=== PATIENT | female | born 1990 | race Caucasian/White ===

== ENCOUNTER 2020-09-04 11:20 | Inpatient (IN) | payer OTHER, BC ==
[~2020-09-04 11:20] MED LIST: Dexamethasone 20 MG/5 ML VIAL ONE; Iopamidol-370 76% 500 ML 1 ML ONE; Ketorolac Tromethamine 30 MG/ML VIAL ONE; Lidocaine 1% PF 5 ML VIAL ONE; Ondansetron PF 4 MG/2 ML Vial ONE; PROPOFOL 200 MG/20 ML VIAL ONE; Rocuronium Bromide 10 MG/ML (10ML VIAL) ONE; Succinylcholine 200 MG/10 ml SYRINGE FS ONE; diphenhydrAMINE 50 MG/ML VIAL ONE
[2020-09-04 11:52] LABS: PTT 22.9 sec (22.9-36.1); Prothrombin Time 13.7 sec (12.0-14.7)
[2020-09-04 11:54] LABS: Hemoglobin 14.7 g/dL (12.0-16.0); Mean Corpuscular HGB CONC 34.7 g/dL (32.0-36.0); Mean Corpuscular Hemoglobin 30.3 pg (27.0-31.0); Mean Corpuscular Volume 87.3 fL (78.0-98.0); Platelet Count 272 thou/uL (130-400); RBC Distribution Width 12.7 % (11.5-14.5); Red Blood Cell (RBC) Count 4.84 mill/uL (4.20-5.40)
[2020-09-04 12:00] LABS: ALT (SGPT) 60 U/L (8-55); AST (SGOT) 34 U/L (5-34); Albumin 4.1 g/dL (3.5-5.0); Alkaline Phosphatase 146 U/L (40-110); Anion Gap 17 mmol/L (10-20); BUN (Urea Nitrogen) 13 mg/dL (7.0-18.7); Bilirubin, Total 0.5 mg/dL (0.2-1.2); Calc. Creatinine Clearance 0 mL/min (70-130); Calcium 8.8 mg/dL (7.8-10.44); Carbon Dioxide 17 mmol/L (22-29); Chloride 104 mmol/L (98-107); Globulin 2.8 g/dL (2.4-3.5); Glucose 174 mg/dL (70-105); Lipase 7 U/L (8-78); Potassium 4.1 mmol/L (3.5-5.1); Protein, Total 6.9 g/dL (6.0-8.3); Sodium 134 mmol/L (136-145)
[2020-09-04 12:01] LABS: Acetaminophen Less than 6.0 mcg/mL (10.0-30.0); Alcohol Less than 10 mg/dL (Less than 10); CK (CPK) 163 U/L (29-168); Salicylate Less than 8.0 mg/dL (15.0-30.0)
[2020-09-04 12:03] LABS: BHCG - Serum Negative (NEGATIVE); Pregs Control Background? CLEAR/WHITE (CLR/WHITE); Pregs Control Bar Appear? YES (CONTROL BAR)
[2020-09-04 12:07] LABS: Band 9 % (5-11); Eosinophils 1 % (0-10); Lymphocytes 11 % (21-51); MDiff Complete? YES; Monocytes 4 % (0-10); Neutrophil 73 % (42-75); Platelet Morphology Comment Appears Decreased; Reactive Lymphocytes 2 % (0-10); Vacuoles SLIGHT; White Blood Cell (WBC) Count 32.8 thou/uL (4.8-10.8)
[2020-09-04] MEDS ORDERED: Lidocaine 1% w/Epinephrine 1:100K 20 ML VIAL ONE (12:16)
[2020-09-04] MEDS ORDERED: Morphine 4 MG/ML VIAL ONE ×2 (12:25→13:59)
[2020-09-04] MEDS ORDERED: Ondansetron PF 4 MG/2 ML Vial ONE ×3 (12:31→18:27)
[2020-09-04 13:06] LABS: Bacteria/HPF None Seen HPF (None Seen); Bilirubin Negative (Negative); Blood, Urine Trace (Negative); Clarity Clear (Clear); Glucose, Urine (Dipstick) Normal (Negative); Ketone, Urine Negative (Negative); Leukocyte Negative Leu/uL (Negative); Nitrite Negative (Negative); Protein, Urine (Dipstick) 30 mg/dL (Neg-Trace); RBC/HPF 0-3 HPF (0-3); Squamous Epithelial 0-3 HPF (0-3); Urobilinogen Normal mg/dL (Less than 2); WBC/HPF 0-3 HPF (0-3); pH, Urine 5.5 (5.0-9.0)
[2020-09-04 13:08] LABS: Specific Gravity, Urine 1.051 (1.002-1.036)
[2020-09-04 13:17] LABS: Amphetamine Not Detected (NotDetected); Benzodiazepine Screen Not Detected (NotDetected); Cocaine Metabolite Screen Not Detected (NotDetected); Medtox Reader # READER 4; Methamphetamine Not Detected (NotDetected); Opiate Screen Detected (NotDetected); Phencyclidine (PCP) Not Detected (NotDetected); THC/Cannabinoid Screen Not Detected (NotDetected); Tricyclic Screen Not Detected (NotDetected)
[2020-09-04 13:18] LABS: Barbiturates Screen Not Detected (NotDetected); Medtox Control Line Valid? VALID (VALID); Methadone Not Detected (NotDetected); Oxycodone Screen Not Detected (NotDetected)
[2020-09-04] MEDS ORDERED: Boostrix 0.5 ML (Tdap) VIAL ONE (13:26)
[2020-09-04 14:51] LABS: SARS-CoV-2 NAA Rapid Test Not Detected (NotDetected)
[2020-09-04] MEDS ORDERED: Fentanyl 100 MCG/2 ML VIAL ONE ×4 (14:52→18:22)
[2020-09-04] MEDS ORDERED: Famotidine/PF 20 mg/2ml Vial ONE ×2 (14:52→16:13)
[2020-09-04] MEDS ORDERED: Midazolam HCl 2 mg/2 ml Vial ONE (14:52)
[2020-09-04] MEDS ORDERED: HYDROmorphone 2 MG/ML VIAL SLOW IVP PRN (16:36)
[2020-09-04] MEDS ORDERED: Promethazine HCl 25 MG/ML VIAL SLOW IVP PRN ×2 (16:36→17:57)
[2020-09-04] MEDS ORDERED: Meperidine HCl/PF 25 MG/ML VIAL SLOW IVP PRN (16:36)
[2020-09-04] MEDS ORDERED: Promethazine HCl 25 MG/ML VIAL IM PRN ×2 (16:36→17:57)
[2020-09-04] MEDS ORDERED: Dextrose 5% in Water 1,000 ML IV PRN (17:00)
[2020-09-04] MEDS ORDERED: Dextrose 50% Abboject 50 ML SYRINGE SLOW IVP PRN (17:00)
[2020-09-04] MEDS ORDERED: Ondansetron PF 4 MG/2 ML Vial IVP PRN (17:00)
[2020-09-04] MEDS ORDERED: Ondansetron ODT 4 MG TAB PO PRN (17:00)
[2020-09-04] MEDS ORDERED: Insulin Regular 300 UNITS/3 ML VIAL SC PRN (17:00)
[2020-09-04] MEDS ORDERED: Morphine 2 MG/ML VIAL SLOW IVP PRN (17:00)
[2020-09-04] MEDS ORDERED: SUGAMMADEX SODIUM 200 MG/2 ML VIAL ONE (17:26)
[2020-09-04] MEDS ORDERED: Ondansetron HCl/PF 4 MG/2 ML Vial IVP PRN (17:57)
[2020-09-04] MEDS ORDERED: Promethazine HCl 25 MG/ML VIAL ONE (18:34)
[2020-09-04] MEDS ORDERED: Ketorolac Tromethamine 30 MG/ML VIAL IVP SCH (20:30)
[2020-09-04] MEDS: Cyclobenzaprine 10 MG TAB PO PRN (20:35)
[2020-09-04] MEDS: Famotidine/PF 20 mg/2ml Vial SLOW IVP SCH (21:36)
[2020-09-04] MEDS: Gabapentin 300 MG CAP PO SCH (21:36)
[2020-09-04] MEDS: Sodium Chloride 0.9% 1,000 ML IV SCH (21:37)
[2020-09-04] MEDS: CEFAZOLIN 2 GM in Premix Bag 1 BAG IVPB SCH (21:37)
[2020-09-04] MEDS: Ibuprofen 600 MG TAB PO SCH (21:37)
[2020-09-04] MEDS: traMADol HCl 50 MG TAB PO SCH (23:17)
[2020-09-04 23:51] VITALS: BMI 43.0
[2020-09-05] MEDS: Morphine 2 MG/ML VIAL SLOW IVP PRN ×5 (05:31→20:52)
[2020-09-05] MEDS: Sodium Chloride 0.9% 1,000 ML IV SCH (05:33)
[2020-09-05] MEDS: CEFAZOLIN 2 GM in Premix Bag 1 BAG IVPB SCH (05:33)
[2020-09-05] MEDS: Ibuprofen 600 MG TAB PO SCH ×3 (05:33→22:59)
[2020-09-05] MEDS: traMADol HCl 50 MG TAB PO SCH ×4 (05:34→23:01)
[2020-09-05 06:54] LABS: #Lymphocytes 1.4 thou/uL (1.20-3.40); #Monocytes 0.9 thou/uL (0.11-0.59); #Neutrophils 13.8 thou/uL (1.40-6.50); %Eosinophils 0.1 % (0.0-10.0); %Lymphocytes 8.7 % (21.0-51.0); %Monocytes 5.7 % (0.0-10.0); %Neutrophils 85.6 % (42.0-75.0); Hemoglobin 11.4 g/dL (12.0-16.0); Mean Corpuscular HGB CONC 33.2 g/dL (32.0-36.0); Mean Corpuscular Hemoglobin 28.4 pg (27.0-31.0); Mean Corpuscular Volume 85.7 fL (78.0-98.0); Mean Platelet Volume 7.9 fL (7.4-10.4); Platelet Count 244 thou/uL (130-400); RBC Distribution Width 12.6 % (11.5-14.5); Red Blood Cell (RBC) Count 4.02 mill/uL (4.20-5.40); White Blood Cell (WBC) Count 16.1 thou/uL (4.8-10.8)
[2020-09-05 07:13] LABS: Anion Gap 13 mmol/L (10-20); BUN (Urea Nitrogen) 8 mg/dL (7.0-18.7); Calc. Creatinine Clearance 202 mL/min (70-130); Calcium 8.1 mg/dL (7.8-10.44); Carbon Dioxide 21 mmol/L (22-29); Chloride 106 mmol/L (98-107); Glucose 139 mg/dL (70-105); Magnesium 1.9 mg/dL (1.6-2.6); Potassium 3.9 mmol/L (3.5-5.1); Sodium 136 mmol/L (136-145)
[2020-09-05] MEDS ORDERED: CEFAZOLIN 2 GM in Premix Bag 1 BAG IVPB SCH (08:45)
[2020-09-05] MEDS: Gabapentin 300 MG CAP PO SCH ×3 (09:04→20:54)
[2020-09-05] MEDS: Famotidine/PF 20 mg/2ml Vial SLOW IVP SCH (09:04)
[2020-09-05 09:46] LABS: Phosphorus 2.5 mg/dL (2.3-4.7)
[2020-09-05] MEDS: Cyclobenzaprine 10 MG TAB PO PRN ×2 (12:25→23:00)
[2020-09-05] MEDS: Acetaminophen 500 MG TAB PO SCH ×3 (12:25→23:01)
[2020-09-05] MEDS: Famotidine 20 MG TAB PO SCH (20:54)
[2020-09-05] MEDS ORDERED: Ketorolac Tromethamine 30 MG/ML VIAL IVP SCH (21:30)
[2020-09-05] MEDS ORDERED: Sodium Chloride 0.9% 1,000 ML IV SCH (23:55)
[2020-09-06] MEDS: Morphine 2 MG/ML VIAL SLOW IVP PRN (03:07)
[2020-09-06] MEDS ORDERED: Acetaminophen/Codeine 30-300mg Tablet PO PRN (03:58)
[2020-09-06] MEDS: traMADol HCl 50 MG TAB PO SCH ×3 (05:28→19:12)
[2020-09-06] MEDS: Acetaminophen 500 MG TAB PO SCH ×3 (05:29→19:11)
[2020-09-06] MEDS: Ibuprofen 600 MG TAB PO SCH ×3 (05:30→22:03)
[2020-09-06] MEDS ORDERED: Scopolamine 1.5 mg/72 hour Patch ONE (06:36)
[2020-09-06] MEDS ORDERED: Midazolam HCl 2 mg/2 ml Vial ONE ×4 (06:36→19:46)
[2020-09-06] MEDS ORDERED: Fentanyl 100 MCG/2 ML VIAL ONE ×4 (06:36→19:58)
[2020-09-06] MEDS ORDERED: Famotidine/PF 20 mg/2ml Vial ONE (06:36)
[2020-09-06] MEDS ORDERED: Sodium Chloride 0.9% 10 ML ONE (06:38)
[2020-09-06] MEDS ORDERED: Ketamine 50 MG/ML (10ML VIAL) ONE (07:43)
[2020-09-06] MEDS ORDERED: Dexmedetomidine 200 MCG/2 ML VIAL ONE ×2 (08:21→19:45)
[2020-09-06] MEDS ORDERED: SUGAMMADEX SODIUM 200 MG/2 ML VIAL ONE (08:21)
[2020-09-06] MEDS ORDERED: Adenosine 6 MG/2 ML VIAL ONE (08:21)
[2020-09-06] MEDS: Gabapentin 300 MG CAP PO SCH ×3 (10:18→22:03)
[2020-09-06] MEDS: Famotidine 20 MG TAB PO SCH ×2 (10:18→22:03)
[2020-09-06] MEDS ORDERED: Esmolol 100 MG/10 ML VIAL ONE (11:07)
[2020-09-06] MEDS ORDERED: Dexamethasone 20 MG/5 ML VIAL ONE (11:07)
[2020-09-06] MEDS ORDERED: Lidocaine 1% PF 5 ML VIAL ONE (11:07)
[2020-09-06] MEDS ORDERED: Rocuronium Bromide 10 MG/ML (10ML VIAL) ONE ×2 (11:07)
[2020-09-06] MEDS ORDERED: Succinylcholine 200 MG/10 ml SYRINGE FS ONE (11:07)
[2020-09-06] MEDS ORDERED: Ondansetron PF 4 MG/2 ML Vial ONE (11:07)
[2020-09-06] MEDS ORDERED: Glycopyrrolate 0.2 MG/ML 5 ML SYRINGE ONE (11:07)
[2020-09-06] MEDS ORDERED: PROPOFOL 200 MG/20 ML VIAL ONE ×2 (11:07)
[2020-09-06] MEDS ORDERED: Bupivacaine HCl 0.5%/Epinephrine 1:200,000/PF 30 ml Vial ONE (11:10)
[2020-09-06] MEDS: Cyclobenzaprine 10 MG TAB PO PRN (11:59)
[2020-09-06] MEDS: Fentanyl 100 MCG/2 ML VIAL SLOW IVP PRN ×2 (12:13→22:04)
[2020-09-06] MEDS: tiZANidine HCl 4 MG TAB PO SCH ×2 (13:14→19:12)
[2020-09-06] MEDS ORDERED: Morphine 4 MG/ML VIAL ONE (14:04)
[2020-09-06] MEDS ORDERED: Morphine 4 MG/ML VIAL SLOW IVP SCH (14:15)
[2020-09-06] MEDS ORDERED: SUGAMMADEX SODIUM 500 MG/5 ML VIAL ONE (18:56)
[2020-09-06] MEDS ORDERED: Promethazine HCl 25 MG/ML VIAL IM PRN (19:36)
[2020-09-06] MEDS ORDERED: Promethazine HCl 25 MG/ML VIAL SLOW IVP PRN (19:36)
[2020-09-06] MEDS ORDERED: Ondansetron HCl/PF 4 MG/2 ML Vial IVP PRN (19:36)
[2020-09-06] MEDS ORDERED: HYDROcodone/Acetaminophen 5/325 mg Tablet PO PRN (21:04)
[2020-09-06] MEDS ORDERED: hydrALAZINE 20 MG/ML VIAL SLOW IVP PRN (23:24)
[2020-09-07] MEDS: HYDROcodone/Acetaminophen 5/325 mg Tablet PO PRN ×2 (00:07→21:23)
[2020-09-07] MEDS: Melatonin 3 MG TAB PO PRN ×2 (00:08→23:06)
[2020-09-07] MEDS: Acetaminophen 500 MG TAB PO SCH ×5 (01:01→23:05)
[2020-09-07] MEDS: traMADol HCl 50 MG TAB PO SCH ×5 (01:02→23:05)
[2020-09-07] MEDS: tiZANidine HCl 4 MG TAB PO SCH ×3 (01:06→15:21)
[2020-09-07 05:36] LABS: #Eosinphils 0.1 thou/uL (0.0-0.7); #Lymphocytes 3.6 thou/uL (1.20-3.40); #Monocytes 0.7 thou/uL (0.11-0.59); #Neutrophils 9.4 thou/uL (1.40-6.50); %Basophils 0.1 % (0.0-1.0); %Eosinophils 0.5 % (0.0-10.0); %Lymphocytes 25.8 % (21.0-51.0); %Monocytes 5.1 % (0.0-10.0); %Neutrophils 68.5 % (42.0-75.0); Hemoglobin 9.4 g/dL (12.0-16.0); Mean Corpuscular HGB CONC 31.6 g/dL (32.0-36.0); Mean Corpuscular Hemoglobin 27.5 pg (27.0-31.0); Mean Corpuscular Volume 87.2 fL (78.0-98.0); Mean Platelet Volume 8.1 fL (7.4-10.4); Platelet Count 219 thou/uL (130-400); RBC Distribution Width 12.3 % (11.5-14.5); Red Blood Cell (RBC) Count 3.41 mill/uL (4.20-5.40); White Blood Cell (WBC) Count 13.8 thou/uL (4.8-10.8)
[2020-09-07] MEDS: Ibuprofen 600 MG TAB PO SCH ×3 (05:41→21:20)
[2020-09-07 05:56] LABS: Anion Gap 12 mmol/L (10-20); BUN (Urea Nitrogen) 11 mg/dL (7.0-18.7); Calc. Creatinine Clearance 246 mL/min (70-130); Carbon Dioxide 24 mmol/L (22-29); Chloride 107 mmol/L (98-107); Glucose 95 mg/dL (70-105); Magnesium 1.9 mg/dL (1.6-2.6); Phosphorus 1.9 mg/dL (2.3-4.7); Potassium 3.8 mmol/L (3.5-5.1); Sodium 139 mmol/L (136-145)
[2020-09-07] MEDS ORDERED: Magnesium Sulfate 3 GM in Sodium Chloride 0.9% 100 ML IV SCH (08:00)
[2020-09-07] MEDS ORDERED: CEFAZOLIN 2 GM in Premix Bag 1 BAG IVPB SCH (08:00)
[2020-09-07] MEDS ORDERED: PHOS-NAK 1 PKT PACK PO SCH (09:00)
[2020-09-07] MEDS: Famotidine 20 MG TAB PO SCH ×2 (09:47→21:20)
[2020-09-07] MEDS: Gabapentin 300 MG CAP PO SCH ×3 (09:47→21:20)
[2020-09-07] MEDS: cloNIDine 0.2 MG TAB PO SCH ×3 (11:47→23:04)
[2020-09-07] MEDS ORDERED: cloNIDine 0.2 MG TAB PO SCH (12:00)
[2020-09-07] MEDS: Cyclobenzaprine 10 MG TAB PO PRN (22:29)
[2020-09-08] MEDS: HYDROcodone/Acetaminophen 5/325 mg Tablet PO PRN (01:10)
[2020-09-08] MEDS ORDERED: Haloperidol Lactate 5 MG/ML VIAL ONE (04:19)
[2020-09-08] MEDS ORDERED: Haloperidol Lactate 5 MG/ML VIAL IM SCH (04:45)
[2020-09-08] MEDS: Acetaminophen 500 MG TAB PO SCH ×2 (05:56→13:29)
[2020-09-08 05:57] LABS: #Basophils 0.1 thou/uL (0.0-0.2); #Eosinphils 0.1 thou/uL (0.0-0.7); #Lymphocytes 2.2 thou/uL (1.20-3.40); #Monocytes 0.8 thou/uL (0.11-0.59); #Neutrophils 10.6 thou/uL (1.40-6.50); %Basophils 0.4 % (0.0-1.0); %Lymphocytes 16.1 % (21.0-51.0); %Monocytes 5.7 % (0.0-10.0); %Neutrophils 76.7 % (42.0-75.0); Hemoglobin 10.1 g/dL (12.0-16.0); Mean Corpuscular HGB CONC 32.6 g/dL (32.0-36.0); Mean Corpuscular Hemoglobin 28.4 pg (27.0-31.0); Mean Corpuscular Volume 87.3 fL (78.0-98.0); Mean Platelet Volume 7.8 fL (7.4-10.4); Platelet Count 253 thou/uL (130-400); RBC Distribution Width 12.3 % (11.5-14.5); Red Blood Cell (RBC) Count 3.56 mill/uL (4.20-5.40); White Blood Cell (WBC) Count 13.8 thou/uL (4.8-10.8)
[2020-09-08] MEDS: cloNIDine 0.2 MG TAB PO SCH ×2 (05:57→13:29)
[2020-09-08] MEDS: Ibuprofen 600 MG TAB PO SCH ×3 (05:57→20:32)
[2020-09-08] MEDS: traMADol HCl 50 MG TAB PO SCH ×3 (05:57→17:03)
[2020-09-08 06:17] LABS: Anion Gap 12 mmol/L (10-20); BUN (Urea Nitrogen) 11 mg/dL (7.0-18.7); Calc. Creatinine Clearance 254 mL/min (70-130); Calcium 7.8 mg/dL (7.8-10.44); Carbon Dioxide 23 mmol/L (22-29); Chloride 105 mmol/L (98-107); Glucose 103 mg/dL (70-105); Magnesium 1.9 mg/dL (1.6-2.6); Phosphorus 2.4 mg/dL (2.3-4.7); Potassium 3.5 mmol/L (3.5-5.1); Sodium 136 mmol/L (136-145)
[2020-09-08] MEDS ORDERED: Potassium Phosphate 30 MMOL in Sodium Chloride 0.9% 500 ML IVPB SCH (07:15)
[2020-09-08] MEDS ORDERED: Fentanyl 100 MCG/2 ML VIAL ONE ×5 (07:23→11:16)
[2020-09-08] MEDS ORDERED: Magnesium 2 GM/50 ML 2 GM in Premix Bag 1 BAG IVPB SCH (07:30)
[2020-09-08] MEDS ORDERED: Vancomycin 1.5 GRAM/300 ML BAG ONE (07:31)
[2020-09-08] MEDS ORDERED: Tranexamic Acid 1,000 MG/10 ML VIAL ONE (07:31)
[2020-09-08] MEDS ORDERED: Sodium Chloride 0.9% 100 ML ONE (07:31)
[2020-09-08] MEDS ORDERED: Midazolam HCl 2 mg/2 ml Vial ONE (07:37)
[2020-09-08] MEDS ORDERED: Potassium Phosphate 30 MMOL, Magnesium Sulfate 2 GM in Sodium Chloride 0.9% 250 ML 250 ML IVPB SCH (07:45)
[2020-09-08] MEDS ORDERED: HYDROmorphone 2 MG/ML VIAL ONE (08:42)
[2020-09-08] MEDS ORDERED: Ondansetron HCl/PF 4 MG/2 ML Vial IVP PRN (10:07)
[2020-09-08] MEDS ORDERED: Promethazine HCl 25 MG/ML VIAL SLOW IVP PRN (10:07)
[2020-09-08] MEDS ORDERED: Promethazine HCl 25 MG/ML VIAL IM PRN (10:07)
[2020-09-08] MEDS ORDERED: HYDROmorphone 2 MG/ML VIAL SLOW IVP PRN (10:07)
[2020-09-08] MEDS: Senokot S 8.6-50 MG TAB PO SCH ×2 (10:26→20:32)
[2020-09-08] MEDS: clonazePAM 0.5 MG TAB PO SCH ×3 (10:27→20:31)
[2020-09-08] MEDS: Gabapentin 300 MG CAP PO SCH ×3 (10:27→20:31)
[2020-09-08] MEDS: Polyethylene Glycol 3350 17 GM Packet PO SCH (10:27)
[2020-09-08] MEDS: Famotidine 20 MG TAB PO SCH ×2 (10:27→20:32)
[2020-09-08] MEDS ORDERED: Dexmedetomidine 200 MCG/2 ML VIAL ONE (10:39)
[2020-09-08] MEDS ORDERED: Bupivacaine PF 0.5% 30 ML VIAL ONE (11:15)
[2020-09-08] MEDS ORDERED: PROPOFOL 200 MG/20 ML VIAL ONE (12:49)
[2020-09-08] MEDS ORDERED: Ondansetron PF 4 MG/2 ML Vial ONE (12:49)
[2020-09-08] MEDS ORDERED: Glycopyrrolate 0.2 MG/ML 5 ML SYRINGE ONE (12:49)
[2020-09-08] MEDS ORDERED: Rocuronium Bromide 10 MG/ML (10ML VIAL) ONE (12:49)
[2020-09-08] MEDS ORDERED: PHENYLEPHRINE-NS 100 MCG/ML 10 ML SYRINGE ONE (12:49)
[2020-09-08] MEDS ORDERED: Dexamethasone 20 MG/5 ML VIAL ONE (12:49)
[2020-09-08] MEDS ORDERED: Lidocaine 1% PF 5 ML VIAL ONE (12:49)
[2020-09-08] MEDS: CEFAZOLIN 2 GM in Premix Bag 1 BAG IVPB SCH (17:02)
[2020-09-08] MEDS: Acetaminophen 325 MG TAB PO SCH (17:03)
[2020-09-08] MEDS: cloNIDine 0.1 MG TAB PO SCH (17:52)
[2020-09-08] MEDS ORDERED: cloNIDine 0.1 MG TAB PO SCH (18:00)
[2020-09-08] MEDS: Cyclobenzaprine 10 MG TAB PO PRN (20:32)
[2020-09-08] MEDS: Melatonin 3 MG TAB PO PRN (20:32)
[2020-09-08] MEDS: Vancomycin 1.5 GRAM/300 ML BAG 1.5 GM in Premix Bag 1 BAG IVPB SCH (20:32)
[2020-09-09] MEDS: traMADol HCl 50 MG TAB PO SCH ×4 (00:01→17:17)
[2020-09-09] MEDS: Acetaminophen 325 MG TAB PO SCH ×2 (00:01→05:36)
[2020-09-09] MEDS: CEFAZOLIN 2 GM in Premix Bag 1 BAG IVPB SCH ×2 (00:01→09:11)
[2020-09-09] MEDS: cloNIDine 0.1 MG TAB PO SCH ×5 (00:02→17:13)
[2020-09-09] MEDS: Cyclobenzaprine 10 MG TAB PO PRN (03:59)
[2020-09-09] MEDS: HYDROcodone/Acetaminophen 5/325 mg Tablet PO PRN (03:59)
[2020-09-09 05:23] LABS: #Eosinphils 0.2 thou/uL (0.0-0.7); #Lymphocytes 3.6 thou/uL (1.20-3.40); #Monocytes 0.9 thou/uL (0.11-0.59); #Neutrophils 9.2 thou/uL (1.40-6.50); %Basophils 0.2 % (0.0-1.0); %Eosinophils 1.2 % (0.0-10.0); %Lymphocytes 25.7 % (21.0-51.0); %Monocytes 6.6 % (0.0-10.0); %Neutrophils 66.4 % (42.0-75.0); Hemoglobin 9.1 g/dL (12.0-16.0); Mean Corpuscular HGB CONC 32.9 g/dL (32.0-36.0); Mean Corpuscular Hemoglobin 28.8 pg (27.0-31.0); Mean Corpuscular Volume 87.6 fL (78.0-98.0); Mean Platelet Volume 7.7 fL (7.4-10.4); Platelet Count 276 thou/uL (130-400); RBC Distribution Width 12.3 % (11.5-14.5); Red Blood Cell (RBC) Count 3.14 mill/uL (4.20-5.40); White Blood Cell (WBC) Count 13.9 thou/uL (4.8-10.8)
[2020-09-09 05:25] LABS: Anion Gap 11 mmol/L (10-20); BUN (Urea Nitrogen) 10 mg/dL (7.0-18.7); Calc. Creatinine Clearance 271 mL/min (70-130); Calcium 7.8 mg/dL (7.8-10.44); Carbon Dioxide 24 mmol/L (22-29); Chloride 104 mmol/L (98-107); Glucose 105 mg/dL (70-105); Magnesium 1.8 mg/dL (1.6-2.6); Phosphorus 2.4 mg/dL (2.3-4.7); Potassium 3.4 mmol/L (3.5-5.1); Sodium 136 mmol/L (136-145)
[2020-09-09] MEDS: Ibuprofen 600 MG TAB PO SCH ×2 (05:35→13:10)
[2020-09-09] MEDS: Famotidine 20 MG TAB PO SCH ×2 (07:54→19:30)
[2020-09-09] MEDS: Senokot S 8.6-50 MG TAB PO SCH ×2 (07:54→19:29)
[2020-09-09] MEDS: Polyethylene Glycol 3350 17 GM Packet PO SCH (07:54)
[2020-09-09] MEDS: clonazePAM 0.5 MG TAB PO SCH ×3 (07:55→19:30)
[2020-09-09] MEDS: Gabapentin 300 MG CAP PO SCH ×3 (07:55→19:30)
[2020-09-09] MEDS: HYDROcodone/Acetaminophen 10/325 mg Tablet PO PRN ×3 (08:00→18:41)
[2020-09-09] MEDS ORDERED: Magnesium Sulfate 2 GM in Sodium Chloride 0.9% 100 ML IV SCH (08:00)
[2020-09-09] MEDS ORDERED: Potassium Phosphate 30 MMOL, Magnesium Sulfate 2 GM in Sodium Chloride 0.9% 250 ML 250 ML IVPB SCH (08:00)
[2020-09-09] MEDS: Vancomycin 1.5 GRAM/300 ML BAG 1.5 GM in Premix Bag 1 BAG IVPB SCH (09:45)
[2020-09-09] MEDS: Enoxaparin Sodium 30 MG/0.3 ML SYRINGE SC SCH ×2 (09:47→19:29)
[2020-09-09] MEDS ORDERED: Acetaminophen 325 MG TAB PO SCH (12:00)
[2020-09-09] MEDS ORDERED: Nicotine 14 MG PATCH TD SCH (16:00)
[2020-09-09] MEDS ORDERED: carBAMazepine 200 MG TAB PO SCH (17:00)
[2020-09-09 20:14] VITALS: BP 114/71; TEMP 99.1
[2020-09-09] MEDS ORDERED: carBAMazepine SR 300 mg Capsule PO SCH (21:00)
== END 2020-09-09 22:17 | DRG 483 ==
LOC: ERS 11:20 → SDC 15:10 → SJJU 17:00
PROVIDERS: ADMIT Surgery; ATTEND Surgery
PROC: 0PSC04Z Reposition Right Humeral Head with Internal Fixation Device, Open Approach (ICD-10-PCS; 2020-09-04)
PROC: 0LS30ZZ Reposition Right Upper Arm Tendon, Open Approach (ICD-10-PCS; 2020-09-04)
PROC: 0HQ0XZZ Repair Scalp Skin, External Approach (ICD-10-PCS; 2020-09-04)
PROC: 0RRJ0J6 Replacement of Right Shoulder Joint with Synthetic Substitute, Humeral Surface, Open Approach (ICD-10-PCS; principal; 2020-09-06)
PROC: 0PSD04Z Reposition Left Humeral Head with Internal Fixation Device, Open Approach (ICD-10-PCS; 2020-09-06)
PROC: 0LS40ZZ Reposition Left Upper Arm Tendon, Open Approach (ICD-10-PCS; 2020-09-06)
PROC: 0PSCXZZ Reposition Right Humeral Head, External Approach (ICD-10-PCS; 2020-09-06)
DX: S42.261A Displaced fracture of lesser tuberosity of right humerus, initial encounter for closed fracture (principal); S32.011A Stable burst fracture of first lumbar vertebra, initial encounter for closed fracture; S06.0X9A Concussion with loss of consciousness of unspecified duration, initial encounter; S42.262A Displaced fracture of lesser tuberosity of left humerus, initial encounter for closed fracture; S22.038A Other fracture of third thoracic vertebra, initial encounter for closed fracture; S46.822A Laceration of other muscles, fascia and tendons at shoulder and upper arm level, left arm, initial encounter; Z68.41 Body mass index [BMI] 40.0-44.9, adult; M97.31XA Periprosthetic fracture around internal prosthetic right shoulder joint, initial encounter; K21.9 Gastro-esophageal reflux disease without esophagitis; S01.01XA Laceration without foreign body of scalp, initial encounter; E66.01 Morbid (severe) obesity due to excess calories; Z20.822 Contact with and (suspected) exposure to COVID-19; F41.9 Anxiety disorder, unspecified; T14.8XXA Other injury of unspecified body region, initial encounter; F31.9 Bipolar disorder, unspecified; S42.291A Other displaced fracture of upper end of right humerus, initial encounter for closed fracture; S42.211A Unspecified displaced fracture of surgical neck of right humerus, initial encounter for closed fracture; V46.0XXA Car driver injured in collision with other nonmotor vehicle in nontraffic accident, initial encounter; Z90.49 Acquired absence of other specified parts of digestive tract; S42.26 Fracture of lesser tuberosity of humerus; Z91.19 Patient's noncompliance with other medical treatment and regimen; Z96.611 Presence of right artificial shoulder joint
CPT/HCPCS: 36415; 36416; 51701; 70450; 71045; 71260; 72125; 72128; 72170; 74177; 76000; 80048; 80053; 80306; 80307; 81003; 81015; 82550; 83690; 83735; 84100; 84703; 85025; 85610; 85730; 86850; 86900; 86901; 90471; 90715; 96365; 96375; 96376; C1713; G0390; J0153; J0690; J1100; J1170; J1200; J1630; J1650; J1885; J2250; J2270; J2405; J2550; J2704; J3010; J3370; J3475; J3490; J7030; J7050; L0174; L0200; L0639; Q9967; S0020; S0028; U0002

== ENCOUNTER 2020-10-03 13:58 | Outpatient (CLI) | payer BC | END 2020-10-03 13:59 | disposition home or self-care (01) | LOC: BICRAD 13:58 | PROVIDERS: ATTEND Neurological Surgery | DX: S32.001A Stable burst fracture of unspecified lumbar vertebra, initial encounter for closed fracture (principal); S22.008A Other fracture of unspecified thoracic vertebra, initial encounter for closed fracture | CPT/HCPCS: 72072; 72100 ==

== ENCOUNTER 2020-11-03 15:12 | Outpatient (CLI) | payer BC | END 2020-11-03 15:13 | disposition home or self-care (01) | LOC: BICRAD 15:12 | PROVIDERS: ATTEND Neurological Surgery | DX: S22.008A Other fracture of unspecified thoracic vertebra, initial encounter for closed fracture (principal); S32.001A Stable burst fracture of unspecified lumbar vertebra, initial encounter for closed fracture; M47.814 Spondylosis without myelopathy or radiculopathy, thoracic region | CPT/HCPCS: 72070; 72100 ==

== ENCOUNTER 2020-12-12 15:22 | Outpatient (CLI) | payer BC | END 2020-12-12 15:23 | disposition home or self-care (01) | LOC: BICRAD 15:22 | PROVIDERS: ATTEND Neurological Surgery | DX: S32.011A Stable burst fracture of first lumbar vertebra, initial encounter for closed fracture (principal) | CPT/HCPCS: 72100 ==

== ENCOUNTER 2021-01-20 13:40 | Outpatient (CLI) | payer BC | END 2021-01-20 13:41 | disposition home or self-care (01) | LOC: BICRAD 13:40 | PROVIDERS: ATTEND Physician Assistant | DX: M54.5 Low back pain (principal); S22.008A Other fracture of unspecified thoracic vertebra, initial encounter for closed fracture; S32.011D Stable burst fracture of first lumbar vertebra, subsequent encounter for fracture with routine healing; M51.36 Other intervertebral disc degeneration, lumbar region; M53.86 Other specified dorsopathies, lumbar region | CPT/HCPCS: 72100 ==

== ENCOUNTER 2021-02-03 08:07 | Day surgery (SDC) | payer BC ==
[2021-02-02 14:07] VITALS: BMI 42.7
[2021-02-03] MEDS ORDERED: Clindamycin/D5W 900 mg/50 ml Premix Bag ONE (08:55)
[2021-02-03] MEDS ORDERED: Midazolam HCl 2 mg/2 ml Vial ONE (10:41)
[2021-02-03] MEDS ORDERED: Fentanyl 100 MCG/2 ML VIAL ONE ×4 (10:41→13:06)
[2021-02-03] MEDS ORDERED: Lidocaine 1% PF 5 ML VIAL ONE (10:46)
[2021-02-03] MEDS ORDERED: PROPOFOL 200 MG/20 ML VIAL ONE (10:46)
[2021-02-03] MEDS ORDERED: Ondansetron PF 4 MG/2 ML Vial ONE (10:46)
[2021-02-03] MEDS ORDERED: Lidocaine 1% w/Epinephrine 1:100K 20 ML VIAL ONE (10:48)
[2021-02-03] MEDS ORDERED: Bupivacaine PF 0.5% 30 ML VIAL ONE (10:48)
[2021-02-03] MEDS ORDERED: Bacitracin Zinc Ointment 30 gm TUBE ONE (10:48)
[2021-02-03] MEDS ORDERED: Morphine 10 MG/ML VIAL ONE (11:03)
[2021-02-03] MEDS ORDERED: Promethazine HCl 25 MG/ML VIAL ONE (12:04)
[2021-02-03] MEDS ORDERED: HYDROcodone/Acetaminophen 5/325 mg Tablet ONE (14:10)
== END 2021-02-03 14:45 | disposition home or self-care (01) ==
LOC: SDC 08:07
PROVIDERS: ATTEND Specialist
PROC: 0HBHXZZ Excision of Right Upper Leg Skin, External Approach (ICD-10-PCS; principal; 2021-02-03)
PROC: 0JBL0ZZ Excision of Right Upper Leg Subcutaneous Tissue and Fascia, Open Approach (ICD-10-PCS; principal; 2021-02-03)
DX: L76.34 Postprocedural seroma of skin and subcutaneous tissue following other procedure (principal); Z79.899 Other long term (current) drug therapy
CPT/HCPCS: J2250; J2270; J2405; J2550; J2704; J3010; J3490; S0020

== ENCOUNTER 2021-03-07 13:24 | Outpatient (CLI) | payer BC | END 2021-03-07 13:25 | disposition home or self-care (01) | LOC: BICRAD 13:24 | PROVIDERS: ATTEND Physician Assistant | DX: S22.008A Other fracture of unspecified thoracic vertebra, initial encounter for closed fracture (principal); M54.5 Low back pain; S32.011A Stable burst fracture of first lumbar vertebra, initial encounter for closed fracture | CPT/HCPCS: 72100 ==

== ENCOUNTER 2021-05-01 15:45 | Outpatient (CLI) | payer BC | END 2021-05-01 15:46 | disposition home or self-care (01) | LOC: BICRAD 15:45 | PROVIDERS: ATTEND Neurological Surgery | DX: S22.008A Other fracture of unspecified thoracic vertebra, initial encounter for closed fracture (principal); M54.50 Low back pain, unspecified; S32.011A Stable burst fracture of first lumbar vertebra, initial encounter for closed fracture | CPT/HCPCS: 72100 ==